=== PATIENT | female | born 1950 | race Caucasian/White ===

== ENCOUNTER 2021-04-27 15:24 | Emergency (ER) | payer OTHER | END 2021-04-27 15:45 | disposition left against medical advice (07) | LOC: ER1 15:24 | DX: Z53.21 Procedure and treatment not carried out due to patient leaving prior to being seen by health care provider (principal) ==

== ENCOUNTER → 2021-07-04 | Outpatient (CLI) | payer OTHER | LOC: EXRD 10:11 | DX: M50.122 Cervical disc disorder at C5-C6 level with radiculopathy (principal); M51.16 Intervertebral disc disorders with radiculopathy, lumbar region; M51.14 Intervertebral disc disorders with radiculopathy, thoracic region | CPT/HCPCS: 72040; 72070; 72100 ==

== ENCOUNTER → 2021-08-17 | Outpatient (CLI) | payer OTHER | LOC: MAMO 09:30 | DX: Z12.31 Encounter for screening mammogram for malignant neoplasm of breast (principal); Z85.3 Personal history of malignant neoplasm of breast | CPT/HCPCS: 77063; 77067 ==

== ENCOUNTER → 2021-10-20 | Outpatient (CLI) | payer OTHER | LOC: HEART 5 10-10 15:30 | DX: R42 Dizziness and giddiness (principal); I49.9 Cardiac arrhythmia, unspecified ==